=== PATIENT | female | born 1965 | race Caucasian/White ===

== ENCOUNTER 2023-06-15 04:17 | Emergency (ER) | payer BC ==
[2023-06-15] MEDS ORDERED: Dicyclomine 20 MG/2 ML VIAL ONE (04:56)
[2023-06-15 05:27] LABS: #Monocytes 0.5 thou/uL (0.11-0.59); #Neutrophils 8.4 thou/uL (1.40-6.50); %Basophils 0.2 % (0.0-1.0); %Lymphocytes 11.8 % (21.0-51.0); %Monocytes 4.8 % (0.0-10.0); %Neutrophils 82.7 % (42.0-75.0); Hemoglobin 13.8 g/dL (12.0-16.0); Mean Corpuscular HGB CONC 34.8 g/dL (32.0-36.0); Mean Corpuscular Hemoglobin 29.4 pg (27.0-31.0); Mean Corpuscular Volume 84.5 fl (78.0-98.0); Mean Platelet Volume 9.3 fL (7.4-10.4); Platelet Count 289 10x3/uL (130-400); RBC Distribution Width 12.8 % (11.5-14.5); White Blood Cell (WBC) Count 10.1 10x3/uL (4.8-10.8)
[2023-06-15 05:53] LABS: ALT (SGPT) 24 U/L (8-55); AST (SGOT) 19 U/L (5-34); Albumin 4.2 g/dL (3.5-5.0); Alkaline Phosphatase 130 U/L (40-110); Anion Gap 16 mmol/L (10-20); BUN (Urea Nitrogen) 7 mg/dL (9.8-20.1); Bilirubin, Total 0.4 mg/dL (0.2-1.2); Calc. Creatinine Clearance 0 mL/min (70-130); Calcium 9.3 mg/dL (7.8-10.44); Carbon Dioxide 20 mmol/L (22-29); Chloride 100 mmol/L (98-107); Estimated GFR 73; Globulin 3.6 g/dL (2.4-3.5); Glucose 114 mg/dL (70-105); Lipase 10 U/L (8-78); Magnesium 2.1 mg/dL (1.6-2.6); Potassium 3.2 mmol/L (3.5-5.1); Protein, Total 7.8 g/dL (6.0-8.3); Sodium 133 mmol/L (136-145)
[2023-06-15] MEDS ORDERED: Iopamidol-370 76% 500 ML MDV (1 ML CHARGE) ONE (09:01)
== END 2023-06-15 07:34 | disposition home or self-care (01) ==
LOC: ERS 04:17
DX: A09 Infectious gastroenteritis and colitis, unspecified (principal)
CPT/HCPCS: 74177; 80053; 83690; 83735; 85025; 96360; 96361; 96372; Q9967

== ENCOUNTER 2024-04-14 07:18 | Outpatient (CLI) | payer BC | END 2024-04-14 07:19 | disposition home or self-care (01) | LOC: NM 07:18 | PROVIDERS: ATTEND Internal Medicine Gastroenterology | DX: R11.2 Nausea with vomiting, unspecified (principal) | CPT/HCPCS: 78264; A9541 ==